=== PATIENT | male | born 1945 | race Caucasian/White ===

== ENCOUNTER 2020-07-07 01:35 | Emergency (ER) | payer OTHER ==
[~2020-07-07 01:35] MED LIST: KEFLEX250 MG PO; PREDNISONE 20MG20 MG PO
[2020-07-07 02:18] LABS: BASOPHIL 0.7 % (0-2); EOSINOPHIL 5.4 % (0-7); HCT 43.2 % (42.0-52.0); HGB 14.8 g/dl (13.2-18.0); MCH 29.7 pg (25.0-31.0); MCHC 34.3 g/dL (32.0-36.0); MCV 86.7 fL (78.0-100.0); MONOCYTE 9.8 % (0-12); MPV 10.3 fL (6.0-9.5); NRBC 0; PLT 161 K/uL (150-400); RBC 4.98 M/uL (4.70-6.00); RDW 12.9 % (11.5-14.0); WBC 7.4 K/uL (4.0-10.5)
[2020-07-07 02:23] LABS: INR 1.94 (0.9-1.2); PROTHROMBIN TIME 21.1 SECONDS (11.4-13.6)
[2020-07-07 02:33] LABS: ALBUMIN 3.8 g/dL (3.4-5.0); BILIRUBIN - TOTAL 1.6 mg/dL (0.2-1.0); BUN/CREAT RATIO (CALC) 15.7 RATIO; CREATININE 1.21 mg/dL (0.67-1.17); GLOBULIN (CALCULATION) 3.3 g/dL; POTASSIUM 4.2 mmol/L (3.5-5.1); TOTAL PROTEIN 7.1 g/dL (6.4-8.2)
[2020-07-07 02:42] LABS: LACTIC ACID 0.7 mmol/L (0.4-1.9); PRO-BNP 79 pg/mL (<450)
[2020-07-07 03:36] LABS: BILIRUBIN NEGATIVE (NEGATIVE); BLOOD NEGATIVE Ery/uL (NEGATIVE); CLARITY CLEAR (CLEAR); COLOR YELLOW (YELLOW); GLUCOSE (U) NORMAL (NORMAL); LEUKOCYTES NEGATIVE Leu/uL (NEGATIVE); NITRITE NEGATIVE (NEGATIVE); PROTEIN NEGATIVE (NEGATIVE); SPECIFIC GRAVITY 1.015 (1.001-1.030); UROBILINOGEN 0.2 mg/dL (0.2-1.0)
== END 2020-07-07 05:30 | disposition home or self-care (01) ==
LOC: FER 01:35
PROVIDERS: Emergency Medicine
DX: R07.9 Chest pain, unspecified (principal); I10 Essential (primary) hypertension; I48.91 Unspecified atrial fibrillation; Z79.899 Other long term (current) drug therapy
CPT/HCPCS: 36415; 70450; 71045; 80053; 81003; 83605; 83880; 84484; 85025; 85610; 93005

== ENCOUNTER 2021-08-25 02:56 | Day surgery (SDCO) | payer OTHER ==
[~2021-08-25] VITALS: Ht 180.3 cm; Wt 98.1 kg
[2021-08-25 03:34] LABS: BASOPHIL 0.4 % (0-2); EOSINOPHIL 2.1 % (0-7); HCT 39.5 % (42.0-52.0); HGB 13.3 g/dl (13.2-18.0); LYMPHOCYTE 5.8 % (15-48); MCH 29.3 pg (25.0-31.0); MCHC 33.7 g/dL (32.0-36.0); NEUTROPHIL 71.3 % (41-80); NRBC 0; PLT 140 K/uL (150-400); RBC 4.54 M/uL (4.70-6.00); RDW 13.1 % (11.5-14.0); WBC 4.8 K/uL (4.0-10.5)
[2021-08-25 03:51] LABS: ALBUMIN 3.4 g/dL (3.4-5.0); BILIRUBIN - TOTAL 1.6 mg/dL (0.2-1.0); BUN/CREAT RATIO (CALC) 13.6 RATIO; CREATININE 1.18 mg/dL (0.67-1.17); GLOBULIN (CALCULATION) 2.8 g/dL; POTASSIUM 3.8 mmol/L (3.5-5.1); TOTAL PROTEIN 6.2 g/dL (6.4-8.2)
[2021-08-25 04:32] LABS: INFLUENZA A NAA NEGATIVE (NEGATIVE)
[2021-08-25 04:33] LABS: CORONAVIRUS 2019 SARS-COV-2 POSITIVE (NEGATIVE)
[2021-08-25] MEDS ORDERED: LOPRESSOR50 MG PO (10:11)
[2021-08-25] MEDS ORDERED: COQ-10100 MG PO (10:11)
[2021-08-25] MEDS ORDERED: HCTZ12.5 MG PO (10:12)
[2021-08-25] MEDS ORDERED: LIPITOR40 MG PO (10:12)
[2021-08-25] MEDS ORDERED: PRINIVIL10 MG PO (10:12)
[2021-08-25] MEDS ORDERED: VITAMIN D325 MC2 PO (10:13)
[2021-08-25] MEDS ORDERED: XARELTO10 MG PO (10:13)
--- NOTE | 2021-08-25 15:50 | NUR ---
08/25/21 An unsuccessful attempt was made to reach patient and spouse by telephone to conduct a social assessment
[2021-08-27] MEDS ORDERED: DECADRON6 MG PO (10:33)
[2021-08-27] MEDS ORDERED: VENTOLIN HFA IN18 GM INH (10:33)
== END 2021-08-27 12:15 | disposition home or self-care (01) ==
LOC: FER 02:56 → FMS 04:35
PROVIDERS: Emergency Medicine; ADMIT Internal Medicine
DX: U07.1 COVID-19 (principal); J12.82 Pneumonia due to coronavirus disease 2019; J96.01 Acute respiratory failure with hypoxia; J45.901 Unspecified asthma with (acute) exacerbation; I48.0 Paroxysmal atrial fibrillation; Z79.01 Long term (current) use of anticoagulants; Z87.891 Personal history of nicotine dependence
CPT/HCPCS: 36415; 36600; 71045; 71275; 80053; 82803; 84484; 85025; 85379; 93005; 94010; 94640; 96372; C9399; G0378; J0248; J0696; J1650; J7030; J7050; J8540; Q9967; U0002